=== PATIENT | female | born 1960 | race Caucasian/White ===

== ENCOUNTER 2019-12-31 10:35 | Outpatient (CLI) | payer OTHER, SELFPAY ==
--- NOTE | 2019-12-31 10:44 | MM_ITS ---
WS: [id number] ADDITIONAL VIEWS RIGHT BREAST HISTORY: ABNORMAL MAMMOGRAM RT BREAST COMPARISON: 11/23/2019 and 04/10/2014 Magnification views right CC and MLO projection. True ML also submitted. Pleomorphic calcifications persist in the posterior RIGHT upper outer quadrant. There are numerous ca lcifications. Calcifications are best seen on the MLO projection extending over a distribution of 3 c m in diameter. No distortion. FOLLOW-UP: Stereotactic Biopsy Recommended Notified CHYNA Ochoa at 12/31/2019 11:09 AM. Message LEFT on voicemail. Unable to speak di rectly to Ms. Cottrell. MM/[place] [id number] IMPRESSION: BI-RADS: 4B-Suspicious: Intermediate
== END 2019-12-31 10:36 | disposition home or self-care (01) ==
LOC: RADSHAW 10:39
PROVIDERS: Family Provider Nurse Practitioner; PCP Nurse Practitioner; Visit Provider Nurse Practitioner
DX: R92.8 Other abnormal and inconclusive findings on diagnostic imaging of breast (principal); N63.11 Unspecified lump in the right breast, upper outer quadrant
CPT/HCPCS: 77065

== ENCOUNTER 2020-01-09 13:14 | Outpatient (CLI) | payer OTHER, SELFPAY ==
--- NOTE | 2020-01-09 13:18 | MM_ITS ---
WS: [id number] Diagnostic RIGHT mammogram Patient presents for stereotactic biopsy of calcifications in the posterior lateral RIGHT breast. The se calcifications are too far posterior to be accessed by stereotactic biopsy. Numerous attempts were made to adequately biopsy these calcifications without success. MM/[place] [id number] Recommendation: Unsuccessful stereotactic biopsy of calcifications in the far posterior lateral RIGHT breast. Recommend surgical evaluation with needle localization and posts urgical biopsy.
== END 2020-01-09 13:15 | disposition home or self-care (01) ==
LOC: RADSHAW 13:16
PROVIDERS: Family Provider Nurse Practitioner; PCP Nurse Practitioner; Visit Provider Nurse Practitioner
DX: R92.1 Mammographic calcification found on diagnostic imaging of breast (principal)
CPT/HCPCS: 77065

== ENCOUNTER 2020-02-05 07:25 | Day surgery (SDC) | payer OTHER, SELFPAY ==
[2020-02-04 12:34] VITALS: BMI 23.4
[2020-02-05] VITALS (8 sets, daily range): BP systolic 117–142; BP diastolic 46–70; PULSE 62–89; RESP 16–23; TEMP 36.4–36.7; O2SAT 97–100
--- NOTE | 2020-02-05 07:32 | MM_ITS ---
WS: [id number] STEREOTACTIC RIGHT BREAST NEEDLE LOCALIZATION HISTORY: Abnormal mammogram COMPARISON: 01/09/2020, 12/31/2019 Procedure, risks and complications are explained to the patient. Consent has been obtained. Localization of calcifications is done with stereotactic technique. 2 wires are placed attempting to bracket the calcifications. The calcifications extend over a length of at least 4.5 cm along the post erior lateral chest wall. Skin is cleansed with ChloraPrep and anesthetized with 1% buffered lidocain e. Kopans needle is inserted to the level of the calcifications. [place] are advanced 0.5 to 1.0 cm b eyond the calcifications. Calcifications are localized with 2 separate wires. Postprocedure the wire extends 0.5 to 1.0 cm nadine cifications. Wires are secured and the patient is sent to the OR with no complications. SPECIMEN RADIOGRAPH: Numerous calcifications are identified within the specimen radiograph. This is a very good representation of the calcifications. The entire calcification burden has not been removed . The entire burden would be very difficult to excise due to their extensive length and size of the p atient's breast. The wires are totally included in the specimen. MM/[place] [id number] IMPRESSION: 1. Needle localization of very suspicious calcifications along the posterior l ateral RIGHT breast. Wires are attempted to bracket the calcifications. These c alcifications extend over a length of at least 4.5 cm. 2. Numerous calcifications are obtained within the specimen. The entire calcif ications are not likely included. This is due to the extensive length of the ca lcifications. PATHOLOGY: Ductal carcinoma in situ. Please see the entire pathology report for additional details. RECOMMENDATION: Follow-up with Dr. Ames.
--- NOTE | 2020-02-05 07:36 | MM_ITS ---
WS: [id number] STEREOTACTIC RIGHT BREAST NEEDLE LOCALIZATION HISTORY: Abnormal mammogram COMPARISON: 01/09/2020, 12/31/2019 Procedure, risks and complications are explained to the patient. Consent has been obtained. Localization of calcifications is done with stereotactic technique. 2 wires are placed attempting to bracket the calcifications. The calcifications extend over a length of at least 4.5 cm along the post erior lateral chest wall. Skin is cleansed with ChloraPrep and anesthetized with 1% buffered lidocain e. Kopans needle is inserted to the level of the calcifications. [place] are advanced 0.5 to 1.0 cm b eyond the calcifications. Calcifications are localized with 2 separate wires. Postprocedure the wire extends 0.5 to 1.0 cm nadine cifications. Wires are secured and the patient is sent to the OR with no complications. SPECIMEN RADIOGRAPH: Numerous calcifications are identified within the specimen radiograph. This is a very good representation of the calcifications. The entire calcification burden has not been removed . The entire burden would be very difficult to excise due to their extensive length and size of the p atient's breast. The wires are totally included in the specimen. MM/MM surgical specimen RT IMPRESSION: 1. Needle localization of very suspicious calcifications along the posterior l ateral RIGHT breast. Wires are attempted to bracket the calcifications. These c alcifications extend over a length of at least 4.5 cm. 2. Numerous calcifications are obtained within the specimen. The entire calcif ications are not likely included. This is due to the extensive length of the ca lcifications. PATHOLOGY: Ductal carcinoma in situ. Please see the entire pathology report for additional details. RECOMMENDATION: Follow-up with Dr. Ames.
--- NOTE | 2020-02-05 07:36 | MM_ITS ---
WS: [id number] STEREOTACTIC RIGHT BREAST NEEDLE LOCALIZATION HISTORY: Abnormal mammogram COMPARISON: 01/09/2020, 12/31/2019 Procedure, risks and complications are explained to the patient. Consent has been obtained. Localization of calcifications is done with stereotactic technique. 2 wires are placed attempting to bracket the calcifications. The calcifications extend over a length of at least 4.5 cm along the post erior lateral chest wall. Skin is cleansed with ChloraPrep and anesthetized with 1% buffered lidocain e. Kopans needle is inserted to the level of the calcifications. [place] are advanced 0.5 to 1.0 cm b eyond the calcifications. Calcifications are localized with 2 separate wires. Postprocedure the wire extends 0.5 to 1.0 cm nadine cifications. Wires are secured and the patient is sent to the OR with no complications. SPECIMEN RADIOGRAPH: Numerous calcifications are identified within the specimen radiograph. This is a very good representation of the calcifications. The entire calcification burden has not been removed . The entire burden would be very difficult to excise due to their extensive length and size of the p atient's breast. The wires are totally included in the specimen. MM/[place] [id number] IMPRESSION: 1. Needle localization of very suspicious calcifications along the posterior l ateral RIGHT breast. Wires are attempted to bracket the calcifications. These c alcifications extend over a length of at least 4.5 cm. 2. Numerous calcifications are obtained within the specimen. The entire calcif ications are not likely included. This is due to the extensive length of the ca lcifications. PATHOLOGY: Ductal carcinoma in situ. Please see the entire pathology report for additional details. RECOMMENDATION: Follow-up with Dr. Ames.
--- NOTE | 2020-02-05 09:26 | W.PM.OPSUD ---
Surgery/Procedure H&P Update DATE OF PROCEDURE: February 05, 2020 DATE H&P PERFORMED: 01/28/20 H&P UPDATE INFORMATION: I have reviewed H&P completed within last 30 days, I have examined patient prior to procedure and No changes to prior documentation PREOP DIAGNOSIS: Abnormal mammogram with right breast calcification PRIMARY INDICATION FOR PROCEDURE: The same PLANNED PROCEDURE: Operation Date: 02/05/20 09:30 Proposed Procedures p Breast Biopsy Needle Localization 10978/90858 R92.8(Right) - Collins Ames MD s Excision Breast Lesion(Right) - Collins Ames MD
[2020-02-05] MEDS: lidocaine 2% INJ 20 mL (09:34)
[2020-02-05] MEDS: sodium chloride 0.9% 1,000 ML 30 ML IV (09:34)
--- NOTE | 2020-02-05 09:38 | P.ANESASSM_ITS ---
Pre-Anesthetic Assessment Pre-Anesthetic Assessment: Height/Weight: Height 1.55 m Weight 56.245 kg Temp Pulse Resp BP Pulse Ox 97.5 F L 62 18 142/70 100 02/05/20 09:30 02/05/20 09:30 02/05/20 09:30 02/05/20 09:30 02/05/20 09:30 Preop Diagnosis: Abnormal mammogram with right breast calcification Proposed Procedure: Operation Date: 02/05/20 09:30 Proposed Procedures p Breast Biopsy Needle Localization 64729/86119 R92.8(Right) - Collins Ames MD s Excision Breast Lesion(Right) - Collins Ames MD Familial anesthetic complications: none Was Beta Agnes taken within 24 hours: N/A Last intake: Intake Last Liquid Date 02/04/20 Last Liquid Time 14:30 Last Solid Date 02/04/20 Last Solid Time 14:30 Social: Social History: Tobacco and No alcohol Packs per day: 0.5 ppd Exam: Pre-Anes Outpt Exam: alert, oriented x 3, clear to auscultation bilaterally and regular rate & rhythm Airway: Cervical ROM: WNL MP: 2 Additional comments: edentulous Pulmonary: Pulmonary: None reported Comments: spontaneous pnemothorax in 2001 and 2016 (both sides) CV/HEM: CV/HEM: None reported : : None reported Hepatic: Hepatic: None reported GI: GI: None reported Metabolic: Metabolic: None reported Musc/skel: Musc/skel: None reported Neuropsych: Neuropsych: None reported Anesthetic Plan: ASA status: 1 Anesthesia: MAC Risk of > 500 ml blood loss (7ml/kg in children): No Meds/Allergies Current Medications: Current Medications Generic Name Dose Route Start Last Admin Trade Name Freq PRN Reason Stop Dose Admin Sodium Chloride 1,000 mls @ 30 ml s/hr 02/05/20 09:00 02/05/20 09:34 Sodium Chloride 0.9% IV 02/06/20 08:59 30 mls/hr .Q24H FREDRICK Administration PFSH Anesthesia PFSH: Social History Smoking and tobacco status: current every day smoker cigarettes Second hand smoke exposure: No Alcohol intake: never Adopted: No Caregiver/support person: Yes Lives independently: Yes Household members: friend(s) Housing: House Marital status: service: No Current occupational status: employed 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
--- NOTE | 2020-02-05 10:57 | P.OP_ITS ---
Operative Report Date of procedure: February 05, 2020 Pre-op Diagnosis: Abnormal mammogram with right breast calcification Post-op diagnosis: same Procedure Done: Right breast lumpectomy status post needle localization Specimens removed/disposition: Right breast lumpectomy status post needle localization Surgeon: Collins Ames Coding Auditor: Surgical shahriar Luz Circulating nurse Kala Anesthesia: General (LMA Nicolette CLINICAL INSTRUCTOR) Estimated blood loss (mL): 5 Condition: stable Disposition: same day Brief History: This is a pleasant 59 years old female patient undergone mammog elizabeth showed calcifications and was not able to get stereotactic biopsy and thus the patient was referred for general surgery for further evaluation and potential intervention. After thorough history physical examination and reviewing the chart and images with my personal interpretation I did vocational counselor the patient for a needle localization followed by a biopsy in the OR Patient agreed to proceed accordingly and informed consent per chart Procedure: After patient undergone a needle localization at Radiology Department hardcopies of the mammography were sent with the patient to the holding area . After identifying the patient holding area, the right breast was marked before the procedure by myself in the presence of female caravan park and camping ground manager, patient was then taken to the operative suite, was placed in supine position, LMA was placed by anesthesia, prophylactic IV antibiotics were given per protocol, right arm was placed in 90? to her body, I was able to take down the tape and dressing on top of the wire without jeopardizing it ,prep and drape of the right pectoralis region was done under the usual sterile technique. Time-out was done verifying the patient's name/date of /planned procedure and destination after the procedure, all were in agreement. After identifying the direction of both wires on the x-rays I did perform a curvilinear incision at the site of entrance of the wires used for the localization , dissection was carried on using electrocautery. The localization wires were grasped and pulled into the incision and dissection continued towards the tip of BOTH wires. The breast tissue containing mammographic abnormality was grasped with Allis forceps and using electrocautery the specimen was dissected free from the surrounding tissue.good margin of normal breast tissue surrounding the needle localized lesions, and and the specimen was taken out and passed to the circulating nurse to send for x-ray and pathology on the designated plate. Specimen was oriented with short suture superior and wires marked lateral .Later we got the clearance from radiology department that the mammographic abnormality was all included in the specimen, yet there were some scattered calcifications beyond the margin, most of the bulk of the calcifications were included in the specimen, because of the unclear nature of the biopsy I elected to hold off removing more tissue still we have the pathology back for further evaluation and potential intervention Thorough irrigation of the cavity was done and hemostasis, followed by deep dermal closure by 3-0 Vicryl, then 4-0 Monocryl for skin closure Lidocaine 2% was injected at the site of the incision, Dermabond was applied followed by dry dressing in the form of Telfa and Tegaderm. Pressure dressing was applied followed by fluffs and a sports bra Patient tolerated the procedure well, count of instruments,needles and sponges were completed at the end of the procedure.And then patient was taken to the recovery area in stable condition. I was present for the whole entire procedure
--- NOTE | 2020-02-05 11:13 | SUR.PHASEI ---
1111 PATIENT TO PACU AT THIS TIME. RR EVEN AND UNLABORED. PATIENT NOTED TO BE RESTING WITH EYES CLOSED, DRESSING INTACT TO RIGHT BREAST, WITH SURGICAL BRA IN PLACE.
--- NOTE | 2020-02-05 11:37 | SUR.PHASEI ---
1134 PATIENT TO OPS AT THIS TIME. NO DISTRESS. TALKATIVE, TOLERATING ICE CHIPS.
[2020-03-14 12:09] LABS: Miscellaneous Test See Scanned Lab Rpt
== END 2020-02-05 12:33 | disposition home or self-care (01) ==
PROVIDERS: Family Provider Nurse Practitioner; PCP Nurse Practitioner; Visit Provider Surgery
PROC: (CPT 19301; principal; 2020-02-05 09:30)
PROC: (CPT 19301; 2020-02-05 09:30)
DX: R92.1 Mammographic calcification found on diagnostic imaging of breast (principal); F17.210 Nicotine dependence, cigarettes, uncomplicated; Z80.3 Family history of malignant neoplasm of breast
CPT/HCPCS: 19301; 12345; 19281; 77065; 88305; J0690; J1100; J2001; J2250; J2405; J2704; J3010; J7030

== ENCOUNTER 2020-02-20 11:30 | Outpatient (RCR) | payer OTHER, SELFPAY ==
--- NOTE | 2020-02-20 07:52 | ONC CON_ITS ---
Dr. Monahan New Patient Note Patient: Tracey Olson Unit #: [id number]: [id number] Dicatated By: Danny Monahan M.D.Date of Visit: Feb 19, 2020 Onc MED New Patient/Consult Referring Physician: Dr. CHRISTIAN FORBES M.D. Chief Complaint: Breast cancer. 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 She had presented with an abnormal screening mammogram. That study, from 11/23/2019, was BI-RADS 0, incomplete. Findings included at least 5 groups of punctate calcifications in the posterior superior and posterior central aspect of the right breast. Additional mammogram views on 12/31/2019 were BI-RADS 4B, suspicious. Findings included pleomorphic calcifications in the posterior right upper quadrant breast. Numerous calcifications were noted to extend over the distribution of 3 cm in diameter. Attempted stereotactic biopsy on 01/09/2020 was unsuccessful. On 02/05/2020 she underwent excisional biopsy under needle localization. It was noted that the entire area of calcifications was likely not included in the specimen. Pathology showed a very small component of low to intermediate grade ductal carcinoma in situ. The estimated size was 2 mm. The margins were uninvolved, but the surrounding breast tissue did show proliferative sclerosing adenosis. She is seen now for further management of the breast cancer. She has been feeling good generally. She really has no significant complaints. She is nulliparous. She underwent natural menopause 2 years ago. She received no hormone replacement therapy. Family history is significant in that her only sister was treated for breast cancer approximately 20 years ago. Past Medical History: She has no other medical illnesses. Past Surgical History: She underwent excisional biopsy of right breast mass on 02/05/2020. Her other surgical/procedural history includes left lung surgery for pneumothorax in 2017, and right lung surgery for pneumothorax in 2001. Medications: This patient reports not taking external medications. Allergies: No Known Allergies. Social History: Ms. 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 She has smoked for 40 years, typically in the range of 5 cigarettes per day. Her maximum was 1/2 pack per day, but only while she was in the [employer]. She has only rare alcohol use. Family History: Father of heart attack. Mother with complications of multiple sclerosis. She has one sister who was treated for breast cancer 20 years ago. Review Of Symptoms: Constitutional - She has good energy and activity tolerance. Appetite is good and weight is stable. No fever or night sweats. She still has some hot flashes. ECOG score is 0, Eyes - No change in vision, ENMT - No sinus congestion/drainage. No mouth sores. No sore throat or difficulty swallowing, Hematologic/Lymphatic - No abnormal bruising or bleeding, Respiratory - No shortness of breath. No cough. No pleuritic pain or hemoptysis, Cardiovascular - No angina pain. No palpitations, Gastrointestinal - No nausea or vomiting. No heartburn or acid reflux. No diarrhea or constipation. No blood in the stool or black stools. She has never had a colonoscopy, Genitourinary (F) - No dysuria or hematuria. No urinary frequency. No urgency or incontinence, Musculoskeletal - No joint or bone pain, Integumentary - No skin rash or other skin changes, Neurologic - No headache or dizziness. No numbness/paresthesias or other focal neurologic symptoms, Psychiatric - No anxiety or depression. No insomnia. Vital Signs: Performed on Feb 19, 2020 09:50: 0, 23.96, 1.56 sq.m, 61.00 in, 100 %, 67 /min, 18 /min, 134/65 mm(hg), 97.0 F (LOW), and 126.8 lbs (HIGH). Physical Examination: Constitutional - She appears to be in good general health, Eyes - Sclerae nonicteric. Conjunctivae clear, ENMT - No lesions noted in the oral cavity, Neck - No mass or thyromegaly, Hematologic/Lymphatic - No cervical or clavicular adenopathy, Respiratory - Lungs are clear with slightly diminished air movement bilaterally, Cardiovascular - Heart rhythm is regular. There is no murmur, gallop, or rub noted, Breasts - The right breast incision appears well-healed. There are no breast masses noted. There is no axillary adenopathy, Abdomen - Soft and non-tender. Liver and spleen are not enlarged. There is no abdominal mass or ascites noted and there is no inguinal adenopathy, Back/Spine - No spine or CVA tenderness noted, Extremities - No edema. Dorsalis pedis pulses are palpable bilaterally, Integumentary - No rashes. No suspicious skin lesions noted, Neurologic - No focal neurologic deficits noted. Impression: 1. 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 2. She underwent excisional biopsy of the right breast on 02/05/2020. Pathology showed just a very small of DCIS in the setting of proliferative sclerosing adenosis and the surrounding breast tissue. It was noted that the entire area of abnormal calcifications noted on the mammogram was likely not completely excised. 3. She has a prior history of spontaneous pneumothorax of the right lung in 2001 and of the left lung in 2017. Plan: The pathology results were reviewed with the patient and we discussed the clinical implications. She has a very small component of ductal carcinoma in situ. The concern is that with the abnormal histology in the surrounding breast tissue and with the area of abnormal calcification noted on mammogram most likely not having been completely excised, there is a risk that there may still be residual carcinoma in the breast and she also may be at higher risk for future development of breast cancer. At this point I am going to go ahead and arrange for referral to the radiation oncologist, but we will need to determine if additional surgery is necessary prior to radiation. At some point I also will want to have further discussion with her regarding adjuvant/preventive hormonal therapy. Signed By: Danny Monahan M.D. <<Signature on File>>
== END 2020-02-26 23:59 | disposition home or self-care (01) ==
LOC: ONCMED 11:30
PROVIDERS: Family Provider Nurse Practitioner; PCP Nurse Practitioner; Referring Provider Surgery; Visit Provider Internal Medicine Medical Oncology
DX: D05.11 Intraductal carcinoma in situ of right breast (principal); F17.210 Nicotine dependence, cigarettes, uncomplicated; Z78.0 Asymptomatic menopausal state; Z87.09 Personal history of other diseases of the respiratory system; Z80.3 Family history of malignant neoplasm of breast
CPT/HCPCS: 99205

== ENCOUNTER 2020-03-06 05:54 | Day surgery (SDC) | payer OTHER, SELFPAY ==
[2020-03-05 14:28] VITALS: BMI 22.6
[2020-03-06] VITALS (9 sets, daily range): BP systolic 112–139; BP diastolic 52–84; PULSE 67–78; RESP 12–23; TEMP 36.2–36.7; O2SAT 98–100
[2020-03-06] MEDS: sodium chloride 0.9% 1,000 ML 30 ML IV (06:16)
--- NOTE | 2020-03-06 06:29 | P.ANESASSM_ITS ---
Pre-Anesthetic Assessment Pre-Anesthetic Assessment: Height/Weight: Height 1.55 m Weight 54.431 kg Temp Pulse Resp BP Pulse Ox 97.6 F 67 16 130/52 100 03/06/20 06:01 03/06/20 06:01 03/06/20 06:01 03/06/20 06:01 03/06/20 06:01 Preop Diagnosis: Right breast cancer Proposed Procedure: Operation Date: 03/06/20 07:20 Proposed Procedures p Total Mastectomy Simple 60046 D05.11(Right) - Collins Ames MD Familial anesthetic complications: NOne Was Beta Agnes taken within 24 hours: N/A Last intake: Intake Last Liquid Date 03/05/20 Last Liquid Time 23:55 Last Solid Date 03/05/20 Last Solid Time 18:30 Social: Social History: Tobacco and No alcohol Packs per day: 0.5 ppd Exam: Pre-Anes Outpt Exam: alert, oriented x 3, clear to auscultation haydee aterally and regular rate & rhythm Airway: Cervical ROM: WNL MP: 3 Additional comments: edentulous Pulmonary: Comments: spontaneous pneumothorax (r lung in 2001, L lung in 2017) CV/HEM: CV/HEM: None reported : : None reported Hepatic: Hepatic: None reported GI: GI: None reported Metabolic: Metabolic: None reported Musc/skel: Musc/skel: None reported Neuropsych: Neuropsych: None reported Anesthetic Plan: ASA status: 2 Anesthesia: General Risk of > 500 ml blood loss (7ml/kg in children): No Meds/Allergies Current Medications: Current Medications Generic Name Dose Route Start Last Admin Trade Name Freq PRN Reason Stop Dose Admin Sodium Chloride 1,000 mls @ 30 ml s/hr 03/06/20 06:00 03/06/20 06:16 Sodium Chloride 0.9% IV 03/07/20 05:59 30 mls/hr .Q24H FREDRICK Administration PFSH Anesthesia PFSH: Social History Smoking and tobacco status: current every day smoker cigarettes Second hand smoke exposure: No Alcohol intake: never Adopted: No Caregiver/support person: Yes Lives independently: Yes Household members: friend(s) Housing: House Marital status: service: No Current occupational status: employed 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
--- NOTE | 2020-03-06 06:48 | W.PM.OPSUD ---
Surgery/Procedure H&P Update DATE OF PROCEDURE: March 06, 2020 DATE H&P PERFORMED: 02/21/20 H&P UPDATE INFORMATION: I have reviewed H&P completed within last 30 days, I have examined patient prior to procedure and No changes to prior documentation PREOP DIAGNOSIS: Right breast cancer PLANNED PROCEDURE: Operation Date: 03/06/20 07:20 Proposed Procedures p Total Mastectomy Simple 78960 D05.11(Right) - Collins Ames MD
[2020-03-06] MEDS: lidocaine 2% INJ 20 mL INJECTION (08:07)
--- NOTE | 2020-03-06 08:16 | P.OP_ITS ---
Operative Report Date of procedure: March 06, 2020 Pre-op Diagnosis: Right breast cancer Post-op diagnosis: same Procedure Done: Right total mastectomy Implants: 19 Pakistani rounded Ezekiel drain Specimens removed/disposition: Right total mastectomy sutures marked superior Surgeon: Collins Ames General Farmer: Surgical shahriar Snow and Margarita Circulating nurses Wendy DUMONT and Wendy Baker Anesthesia: General (GETA) Estimated blood loss (mL): 10 Condition: stable Disposition: same day Brief History: This is a pleasant 59 years old female patient was recently diagnosed with abnormal calcifications on the mammogram that required needle localization and biopsy that showed later on DCIS yet due to the diffuse nature of the calcifications and given the fact that the patient would not be an appropriate candidate for conservative breast therapy and no role for radiation, consensus was obtained for right total mastectomy and patient agreed to proceed accordingly. Informed consent per chart Procedure: Patient was identified in holding area and the right breast was marked by me in the presence of female insurance sales manager,Patient was brought then to the operating room and the site of surgery was confirmed.Time-out was done verifying the patient's name/date of /planned procedure and destination after the procedure, all were in agreement.SCDs confirmed to be functioning, preoperative antibiotics administered per protocol, and beta frank protocol was confirmed, appropriate positioning of the patient was done by me. Right pectoral region including the right breast prepped and draped in the usual sterile fashion. Skin incision was made that encompassed the nipple area complex and the previous biopsy scar passed in a generally transverse/oblique direction across the breast Flaps were raised in the avascular plane between the subcutaneous tissue and breast tissue from the clavicle superiorly, the sternum medially, the anterior rectus sheath inferiorly, and anterior border of the latissimus dorsi muscle laterally. Hemostasis was achieved of the flaps. Next the breast tissue underlying pectoralis fascia were excised from the pectoralis major muscle, progressing from medially to laterally in the avascular plane. At the lateral border of the pectoralis major muscle, the breast tissue was swung laterally. Total mastectomy was achieved.Specimen was marked as sutures marked superior The wound was irrigated and hemostasis was achieved. One rounded Ezekiel drains 19 Pakistani was placed at the wound bed,the drain was stitched to the skin, wound was then closed using deep subdermal 2-0 Vicryl , followed by subcuticular closure using 4-0 Monocryl, dry dressing, drain dressings, Telfa, fluffs on top and sports bra was applied. Counts of sponges, needles and instruments were completed at the end of the procedure I was present for the whole entire procedure Patient was then extubated and taken to the recovery room in stable condition
--- NOTE | 2020-03-06 08:34 | SUR.PHASEI ---
0831 PATIENT TO PACU AT THIS TIME FROM OR. RR EVEN AND UNLABORED. DRESSING DRY AND INTACT TO RIGHT BREAST WITH SURGICAL BRA IN PLACE, BESSY DRAIN NOTED. PATIENT RESTING COMFORTABLE ON GURNEY, PROTECTING AIRWAY. SPO2 100% ON SIMPLE MASK AT 8L.
--- NOTE | 2020-03-06 08:59 | SUR.PHASEI ---
0891 PATIENT TO OPS AT THIS TIME. NO DISTRESS. DENIES PAIN. DRESSING INTACT TO RIGHT BREAST WITH SURGICAL BRA IN PLACE AND BESSY DRAIN.
--- NOTE | 2020-03-06 11:20 | SUR.PHASEII ---
0935 instructed pt and friend Mary of care and both verbalized understanding
== END 2020-03-06 09:45 | disposition home or self-care (01) ==
PROVIDERS: Family Provider Nurse Practitioner; PCP Nurse Practitioner; Visit Provider Surgery
PROC: (CPT 19303; principal; 2020-03-06 07:00)
DX: D05.11 Intraductal carcinoma in situ of right breast (principal); F17.210 Nicotine dependence, cigarettes, uncomplicated
CPT/HCPCS: 19301; 12345; 88309; 96365; J0131; J0690; J2001; J2405; J2704; J2710; J3010; J3490; J7030

== ENCOUNTER 2020-03-24 07:18 | Outpatient (RCR) | payer OTHER, SELFPAY ==
--- NOTE | 2020-03-26 15:46 | ONC FU_ITS ---
Dr. Monahan Patient Follow-Up Note Patient: Tracey Olson < Unit #: [id number]: 1960 Dicatated By: Danny Monahan M.D.Date of Visit:Mar 24, 2020 Onc Med Follow-up/Prog Note Chief Complaint: Breast cancer. 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 She had presented with an abnormal screening mammogram. That study, from 11/23/2019, was BI-RADS 0, incomplete. Findings included at least 5 groups of punctate calcifications in the posterior superior and posterior central aspect of the right breast. Additional mammogram views on 12/31/2019 were BI-RADS 4B, suspicious. Findings included pleomorphic calcifications in the posterior right upper quadrant breast. Numerous calcifications were noted to extend over the distribution of 3 cm in diameter. Attempted stereotactic biopsy on 01/09/2020 was unsuccessful. On 02/05/2020 she underwent excisional biopsy under needle localization. It was noted that the entire area of calcifications was likely not included in the specimen. Pathology showed a very small component of low to intermediate grade ductal carcinoma in situ. The estimated size was 2 mm. The margins were uninvolved, but the surrounding breast tissue did show proliferative sclerosing adenosis. I had seen her initially on 02/19/2020. Given the mammographic findings, there was significant concern about the possibility of residual involvement in the breast. It also appeared that an adequate excision would result in an unacceptable cosmetic result, so that she did not appear to be a suitable candidate for breast conservation management. On 03/06/2020 she underwent right total mastectomy. Pathology showed biopsy cavity with fibrosis and foreign body reaction and fat necrosis. There was no residual ductal carcinoma in situ identified and there was no invasive carcinoma identified. She has had an uneventful postoperative recovery. Medications: She is currently not taking any prescription medications. Allergies: No Known Allergies. Vital Signs: Performed on Mar 24, 2020 14:14 Height - 61.00 in Weight - 126.4 lbs (HIGH) BSA - 1.55 sq.m BMI - 23.88 Temperature - 97.1 F (LOW) Pulse - 67 /min Respiration - 18 /min BP - 140/69 mm(hg) O2 Sat - 99 % Pain - 0 Impression: 1. 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 2. She underwent excisional biopsy of the right breast on 02/05/2020. Pathology showed just a very small of DCIS in the setting of proliferative sclerosing adenosis and the surrounding breast tissue. It was noted that the entire area of abnormal calcifications noted on the mammogram was likely not completely excised. 3. She has a prior history of spontaneous pneumothorax of the right lung in 2001 and of the left lung in 2016. Her mammogram had shown a relatively large area of abnormal calcifications which had not been completely excised with the biopsy. As it appeared that an adequate excision would result in unacceptable cosmetic outcome, she did not appear to be a suitable candidate for breast conservation management. As such, she underwent right total mastectomy on 03/06/2020. Pathology actually did not show any residual ductal carcinoma in situ or any evidence of invasive breast cancer. The remainder of the breast showed fibrocystic changes with no atypia reported. Plan: We discussed the fact that her disease is essentially 100% curable with the mastectomy. In the absence of any pathologic findings to suggest higher than average risk of developing contralateral breast cancer, there is no further treatment indicated. She does need to continue yearly surveillance with unilateral diagnostic mammogram of the left breast. She can have this done through her primary care physician at the [facility]. I will see her again only as needed. Signed By: Danny Monahan M.D. <<Signature on File>>
== END 2020-03-27 23:59 | disposition home or self-care (01) ==
LOC: ONCMED 07:18
PROVIDERS: Family Provider Nurse Practitioner; PCP Nurse Practitioner; Referring Provider Surgery; Visit Provider Internal Medicine Medical Oncology
DX: D05.11 Intraductal carcinoma in situ of right breast (principal); Z90.11 Acquired absence of right breast and nipple
CPT/HCPCS: G0463

== ENCOUNTER 2020-10-30 14:05 | Outpatient (CLI) | payer OTHER, SELFPAY ==
--- NOTE | 2020-10-30 14:18 | US_ITS ---
WS: [id number] ULTRASOUND PELVIS TECHNIQUE: Transabdominal and transvaginal. ULTRASOUND PELVIS TECHNIQUE: Transabdominal. CLINICAL INFORMATION: PELVIC PAIN LMP: : No. COMPARISON: None. FINDINGS: Heterogeneous uterus likely due to fibroids. This is ill-defined and difficult to further delineate. Orientation: Anteverted. Size: 8.6 cm x 4.8 cm x 2.8 cm. Cervix: Normal Endometrium: Slightly prominent for a postmenopausal patient Endometrium thickness: 0.7 cm. Adnexa: Normal. Right ovary size: 3.5 cm x 1.6 cm x 2.0 cm. Right ovary volume: 5.9 ccm3. Left ovary size: 2.3 cm x 2.2 cm x 2.3 cm. Left ovary volume: 5.9 ccm3 Free fluid: None. Other findings: None. US/US pelvic with transvaginal IMPRESSION: 1. Heterogeneous uterus likely due to fibroids 2. Endometrium measuring 6.7 mm slightly prominent for a postmenopausal patien t. Consider hysteroscopy for further evaluation. 3. Both ovaries are normal in appearance. 4. No free fluid in the cul-de-sac.
== END 2020-10-30 14:06 | disposition home or self-care (01) ==
PROVIDERS: PCP Nurse Practitioner; Visit Provider Nurse Practitioner
DX: R10.2 Pelvic and perineal pain (principal)
CPT/HCPCS: 76830; 76856

== ENCOUNTER → 2020-12-04 15:59 | Outpatient (BNVA) | payer OTHER, SELFPAY | PROVIDERS: PCP Nurse Practitioner; Visit Provider Obstetrics & Gynecology | DX: R93.89 Abnormal findings on diagnostic imaging of other specified body structures (principal) | CPT/HCPCS: 88305 ==

== ENCOUNTER 2020-12-24 14:18 | Outpatient (CLI) | payer OTHER, SELFPAY ==
--- NOTE | 2020-12-24 14:28 | MM_ITS ---
WS: [id number] LEFT DIGITAL MAMMOGRAPHY WITH CAD CLINICAL INFORMATION: HX OF BREAST CA HISTORY: COMPARISON: TECHNIQUE: 3 views of the left breast were obtained. FINDINGS: The left breast is composed of heterogeneous fibroglandular density tissue, which can limit the detec tion of small underlying mass lesions. 5 mm asymmetric density at the edge of the [id number] outer breast posterior depth only well seen on the cc view. Recommend spot compression views and ultrasoun d if persistent. No other suspicious abnormality. MM/[place] [id number] IMPRESSION: BI-RADS: 0-Incomplete: Need additional imaging evaluation FOLLOW UP: Need Additional Imaging RECOMMEND ADDITIONAL SPOT COMPRESSION VIEWS LEFT BREAST AND ULTRASOUND IF PERSI STENT.
== END 2020-12-24 14:19 | disposition home or self-care (01) ==
LOC: RADSHAW 14:19
PROVIDERS: PCP Nurse Practitioner; Visit Provider Nurse Practitioner
DX: Z85.3 Personal history of malignant neoplasm of breast (principal); N64.89 Other specified disorders of breast
CPT/HCPCS: 77065

== ENCOUNTER 2021-01-16 14:05 | Outpatient (CLI) | payer OTHER, SELFPAY ==
--- NOTE | 2021-01-16 14:11 | US_ITS ---
WS: [id number] LEFT DIGITAL MAMMOGRAPHY WITH CAD CLINICAL INFORMATION: ABNORMAL MAMMOGRAM HISTORY: COMPARISON: December 24, 2020 TECHNIQUE: 2 views of the left breast were obtained. FINDINGS: Scattered fibroglandular densities of the left breast. Stable 5 mm asymmetric density posterior depth outer quadrant best seen on the cc view. Ultrasound is pending. ULTRASOUND BREAST LEFT TECHNIQUE: Ultrasound left breast focused area of concern. CLINICAL INFORMATION: ABNORMAL MAMMOGRAM COMPARISON: None. FINDINGS: Ultrasound left breast at the 12 to 3:00 position. There is a hypoechoic cystic appearing lesion post erior depth left breast at the 3:00 position. This has a benign appearance. No other suspicious findi ngs. A few incidental normal-appearing lymph nodes in the left axilla. No suspicious lesions to targe t for biopsy. US/US breast LT limited* [id number] IMPRESSION: BI-RADS: 2-Benign FOLLOW UP: 1 Year Follow-up Recommend return to annual diagnostic mammography.
== END 2021-01-16 14:06 | disposition home or self-care (01) ==
LOC: RADSHAW 14:08
PROVIDERS: PCP Nurse Practitioner; Visit Provider Nurse Practitioner
DX: R92.8 Other abnormal and inconclusive findings on diagnostic imaging of breast (principal)
CPT/HCPCS: 76642; 77065

== ENCOUNTER → 2021-09-10 14:32 | Outpatient (BNVA) | payer OTHER, SELFPAY | PROVIDERS: PCP Nurse Practitioner; Referring Provider Nurse Practitioner; Visit Provider Surgery | DX: Z20.822 Contact with and (suspected) exposure to COVID-19 (principal); Z12.11 Encounter for screening for malignant neoplasm of colon | CPT/HCPCS: 87635 ==

== ENCOUNTER 2021-09-17 06:30 | Day surgery (SDC) | payer OTHER, SELFPAY ==
[2021-09-15 15:01] VITALS: BMI 24.5
[2021-09-17 07:04] VITALS: BP 136/71; PULSE 59; RESP 16; TEMP 36.6; O2SAT 100
[2021-09-17] MEDS: sodium chloride 0.9% 1,000 ML 30 ML IV (07:12)
--- NOTE | 2021-09-17 08:10 | P.ANESASSM_ITS ---
Pre-Anesthetic Assessment Pre-Anesthetic Assessment: Height/Weight: Height 1.55 m Weight 58.967 kg Temp Pulse Resp BP Pulse Ox 97.9 F 59 L 16 136/71 100 09/17/21 07:04 09/17/21 07:04 09/17/21 07:04 09/17/21 07:04 09/17/21 07:04 Preop Diagnosis: Screening colonoscopy Proposed Procedure: Operation Date: 09/17/21 08:15 Proposed Procedures p Colonoscopy 80984 z12.11(Not Applicable) - Collins Ames MD Was Beta Agnes taken within 24 hours: N/A Was Clonidine taken within 24 hours: N/A Last intake: Intake Last Liquid Date 09/16/21 Last Liquid Time 22:00 Last Solid Date 09/15/21 Last Solid Time 17:30 Social: Social History: Tobacco and No alcohol Exam: Pre-Anes Outpt Exam: alert, oriented x 3 and regular rate & rhythm Airway: Submandibular: WNL Cervical ROM: WNL MP: 2 Dentition: False Pulmonary: Pulmonary: COPD Anesthetic Plan: ASA status: 3 Anesthesia: MAC Risk of > 500 ml blood loss (7ml/kg in children): No PFSH Anesthesia PFSH: Medical History Ductal carcinoma in situ of right breast Status post right mastectomy on 03/06/2020. Spontaneous pneumothorax Surgical History History of right breast biopsy (02/05/20) Per[place] by [place] Ames [place] [facility] [place] S/P ovarian cystectomy (~1988) Laparoscopic. S/P right mastectomy (03/06/20) Performed at [facility] [place]. 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
--- NOTE | 2021-09-17 08:14 | W.PM.OPSUD ---
Surgery/Procedure H&P Update DATE OF PROCEDURE: September 17, 2021 DATE H&P PERFORMED: 09/10/21 H&P UPDATE INFORMATION: I have reviewed H&P completed within last 30 days, I have examined patient prior to procedure and No changes to prior documentation PREOP DIAGNOSIS: Screening colonoscopy PRIMARY INDICATION FOR PROCEDURE: The same PLANNED PROCEDURE: Operation Date: 09/17/21 08:15 Proposed Procedures p Colonoscopy 16331 z12.11(Not Applicable) - Collins Ames MD
[2021-09-17 08:42] VITALS: BP 96/49; PULSE 62; RESP 16; TEMP 36.3; O2SAT 94
--- NOTE | 2021-09-17 09:12 | PC.NURSE ---
\pt states she has not passed gas, denies pain
--- NOTE | 2021-09-17 12:20 | ANE.PACU2 ---
Inpatient post-anesthesia follow up: Airway intact: Yes Vital signs: Temperature 97.3 F Pulse Rate 62 Respiratory Rate 16 Blood Pressure 96/49 Pulse Oximetry 94 Oxygen Delivery Me thod Room Air Oxygen Flow Rate Fraction of Inspir ed Oxygen Hydration adequate: Yes Nausea and vomiting: No Pain level: 1 Mental status: Baseline
== END 2021-09-17 09:24 | disposition home or self-care (01) ==
PROVIDERS: PCP Nurse Practitioner; Visit Provider Surgery
PROC: 0DJD8ZZ Inspection of Lower Intestinal Tract, Via Natural or Artificial Opening Endoscopic (ICD-10-PCS; CPT 45378; principal; 2021-09-17 08:15)
DX: Z12.11 Encounter for screening for malignant neoplasm of colon (principal); J44.9 Chronic obstructive pulmonary disease, unspecified; F17.210 Nicotine dependence, cigarettes, uncomplicated
CPT/HCPCS: 45378; 96360; 96361; J2704; J7030

== ENCOUNTER 2022-07-19 15:20 | Outpatient (CLI) | payer OTHER, SELFPAY ==
--- NOTE | 2022-07-19 15:26 | MM_ITS ---
WS: [id number] LEFT 3D TOMOSYNTHESIS DIGITAL MAMMOGRAPHY WITH CAD CLINICAL INFORMATION: HX OF BREAST CA COMPARISON: December 24, 2020 and January 16, 2021 TECHNIQUE: 3 views of the left breast were obtained. FINDINGS: The left breast is composed of heterogeneous fibroglandular density tissue, which can limit the detec tion of small underlying mass lesions. Incidental punctate calcifications. No suspicious focal mass, asymmetry, calcifications, or architectural distortion. No evidence of antonio gnancy. MM/[place] [id number] IMPRESSION: BI-RADS: 2-Benign FOLLOW UP: 1 Year Follow-up Recommend return to annual screening mammography.
== END 2022-07-19 15:21 | disposition home or self-care (01) ==
PROVIDERS: PCP Nurse Practitioner; Visit Provider Nurse Practitioner
DX: Z85.3 Personal history of malignant neoplasm of breast (principal)
CPT/HCPCS: 77061

== ENCOUNTER 2023-04-15 12:40 | Outpatient (CLI) | payer OTHER, SELFPAY ==
[2023-04-15 13:33] LABS: Basophils % 0.7 %; Eosinophils # 0.2 10^3/uL (0.0-0.8); Hematocrit 39.7 % (37.0-47.0); Hemoglobin 12.3 g/dL (11.5-15.3); Lymphocytes % 36.3 %; Mean Corpuscular Hemoglobin 27.3 pg (28.0-34.0); Mean Platelet Volume 10.9 fL (7.4-10.4); Monocytes # 0.4 10^3/uL (0.2-0.9); Neutrophils % 51.8 %; Nucleated Red Blood Cells % 0 %; Platelet Count 220 10^3/cmm (130-400); Red Blood Count 4.51 10^6/uL (4.1-5.3); White Blood Count 5.4 10^3/uL (4.0-10.0)
[2023-04-15 13:52] LABS: Alanine Aminotransferase 8 U/L (0-33); Albumin Level 4.4 g/dL (3.5-5.2); Alkaline Phosphatase 62 U/L (35-105); Aspartate Amino Transferase 18 U/L (0-32); Blood Urea Nitrogen 21 mg/dL (8-23); Calcium 9.4 mg/dL (8.5-10.5); Carbon Dioxide 25 mmol/L (22-29); Chloride 102 mmol/L (98-107); Chol HDL Ratio 2.48 mg/dL (0.0-4.40); Cholesterol 191 mg/dL (0-200); Globulin 2.9 g/dL (1.3-4.6); Glomerular Filtration Rate 50.2 mL/min (90-130); Glucose 89 mg/dL (65-115); HDL Cholesterol 77 mg/dL (60-100); LDL Cholesterol Calculated 94 mg/dL (50-129); LDL HDL Ratio 1.22 RATIO (0.00-3.22); Osmolality Calculated 286 mOsm/kg (285-295); Sodium 137 mmol/L (136-145); Total Bilirubin 0.3 mg/dL (0.15-1.2); Total Protein 7.3 g/dL (6.6-8.7); Triglycerides 100 mg/dL (0-150)
[2023-04-15 14:46] LABS: Hepatitis A Antibody IgM Non-Reactive (Nonreactive); Hepatitis B Core AB, Total Reactive (Nonreactive); Hepatitis B Surface AB 159.7 (11.5-1000); Hepatitis B Surface Antigen Non-Reactive (Nonreactive); Hepatitis C Virus Antibody Non-Reactive (Nonreactive)
[2023-04-19 11:06] LABS: Quantiferon Mitogen >10.00 IU/mL; Quantiferon Nil 0.02 IU/mL; Quantiferon TB Gold NEGATIVE (NEGATIVE)
== END 2023-04-15 12:41 | disposition home or self-care (01) ==
PROVIDERS: PCP Nurse Practitioner; Visit Provider Nurse Practitioner Family
DX: L40.0 Psoriasis vulgaris (principal); L81.4 Other melanin hyperpigmentation; D22.5 Melanocytic nevi of trunk; Z71.89 Other specified counseling
CPT/HCPCS: 36415; 80048; 80061; 80076; 85025; 86480; 86705; 86706; 86709; 86803; 87340; 99214

== ENCOUNTER 2023-12-07 15:10 | Outpatient (CLI) | payer OTHER, SELFPAY ==
--- NOTE | 2023-12-07 15:16 | MM_ITS ---
WS: [id number] LEFT 3D TOMOSYNTHESIS DIGITAL MAMMOGRAPHY WITH CAD CLINICAL INFORMATION: ANNUAL - HX BR CA HISTORY: RIGHT mastectomy COMPARISON: 2021 TECHNIQUE: 3 views of the left breast were obtained. FINDINGS: The left breast is composed of heterogeneous fibroglandular density tissue, which can limit the detec tion of small underlying mass lesions. There are few incidental punctate calcifications. No suspicious focal mass, asymmetry, calcifications, or architectural distortion. No evidence of antonio gnancy. IMPRESSION: MM/[place] [id number] BI-RADS: 2-Benign FOLLOW UP: 1 Year Follow-up Recommend return to annual diagnostic mammography.
== END 2023-12-07 15:11 | disposition home or self-care (01) ==
LOC: RAD 15:10
PROVIDERS: PCP Nurse Practitioner; Visit Provider Nurse Practitioner
DX: Z85.3 Personal history of malignant neoplasm of breast (principal)
CPT/HCPCS: 77061; G0279

== ENCOUNTER 2024-12-13 08:34 | Outpatient (CLI) | payer OTHER, SELFPAY ==
--- NOTE | 2024-12-13 08:41 | MM_ITS ---
WS: [id number] LEFT 3D TOMOSYNTHESIS DIGITAL MAMMOGRAPHY WITH CAD CLINICAL INFORMATION: HX OF BREAST CANCER HISTORY: RIGHT mastectomy COMPARISON: 2023 TECHNIQUE: 3 views of the left breast were obtained. FINDINGS: The left breast is composed of heterogeneous fibroglandular density tissue, which can limit the detec tion of small underlying mass lesions. No suspicious focal mass, asymmetry, calcifications, or architectural distortion. No evidence of antonio gnancy. MM/MM diag LT tomosynthesis [id number] IMPRESSION: DENSITY: The breasts are heterogeneously dense, which may obscure small masses. BI-RADS: 1 - Negative FOLLOW UP: 1 Year Follow-up Recommend return to annual diagnostic mammography.
== END 2024-12-13 08:35 | disposition home or self-care (01) ==
LOC: RAD 08:35
PROVIDERS: PCP Nurse Practitioner; Visit Provider Nurse Practitioner
DX: Z12.31 Encounter for screening mammogram for malignant neoplasm of breast (principal); R92.332 Mammographic heterogeneous density, left breast
CPT/HCPCS: 77061; G0279

== ENCOUNTER 2025-07-26 14:26 | Outpatient (CLI) | payer OTHER, SELFPAY ==
--- NOTE | 2025-07-26 14:32 | XR_ITS ---
WS: [id number] DEXA (DUAL ENERGY X-RAY ABSORPTIOMETRY) Bone mineral density was performed using a Xpliant machine. HISTORY: POST MENOPAUSAL COMPARISON: None available. Lumbar spine BMD (L1-L4): 1.181 g/cm2 T score: 0.0 Z score: 1.8 Total hip BMD: Left: 0.875 g/cm2. T score: -1.1 Z score: 0.3 Right: 0.892 g/cm2. T score: -0.9 Z score: 0.4 10 year probability of a major osteoporotic fracture is 10.5%. XR/XR DEXA axial skeleton* [id number] IMPRESSION: OSTEOPENIA based upon the WHO classification for females.
== END 2025-07-26 14:27 | disposition home or self-care (01) ==
LOC: RAD 14:26
PROVIDERS: PCP Nurse Practitioner; Visit Provider Nurse Practitioner
DX: Z13.820 Encounter for screening for osteoporosis (principal); Z78.0 Asymptomatic menopausal state; M85.89 Other specified disorders of bone density and structure, multiple sites
CPT/HCPCS: 77080